=== PATIENT | female | born 1980 | race Caucasian/White ===

== ENCOUNTER → 2016-10-31 | Outpatient (CLI) | payer OTHER | END | disposition home or self-care (01) | LOC: RAD.S 16:24 | DX: R10.31 Right lower quadrant pain (principal); N85.8 Other specified noninflammatory disorders of uterus ==

== ENCOUNTER → 2016-12-13 | Outpatient (CLI) | payer OTHER | END | disposition home or self-care (01) | LOC: RAD.S 18:13 | DX: N85.8 Other specified noninflammatory disorders of uterus (principal) ==